=== PATIENT | male | born 2000 | race Caucasian/White ===

== ENCOUNTER 2019-07-18 21:01 | Emergency (ER) | payer MEDICAID ==
[~2019-07-18] VITALS: Ht 177.8 cm; Wt 94.8 kg
--- NOTE | 2019-07-18 22:29 | NUR ---
PT TO ROOM FROM LOBBY
[2019-07-18] MEDS ORDERED: CLINDAMYCIN PMX 600MG/50ML 50 ML ONE (22:58)
[2019-07-18] MEDS ORDERED: CLINDAMYCIN PMX 600MG/50ML 50 ML IV ONE (23:00)
[2019-07-18] MEDS ORDERED: SODIUM CHLORIDE FLUSH 10ML SYR IVF ONE (23:00)
[2019-07-19] MEDS ORDERED: LIDOCAINE-MPF 1%, 5ML ONE (00:07)
--- NOTE | 2019-07-19 00:18 | NUR ---
KAELYN ZENG IN TO I&D AFFECTED AREA
[2019-07-19 00:20] VITALS: BP 117/75
[2019-07-19] MEDS ORDERED: LIDOCAINE-MPF 1%, 5ML INFIL ONE (00:30)
== END 2019-07-19 00:52 | disposition home or self-care (01) ==
LOC: ED 23:59
DX: L03.011 Cellulitis of right finger (principal); L02.511 Cutaneous abscess of right hand
CPT/HCPCS: 10060; 64450; 96365; 99284

== ENCOUNTER 2021-04-11 23:42 | Emergency (ER) | payer SELFPAY ==
[~2021-04-11] VITALS: Ht 175.3 cm; Wt 91.1 kg
[2021-04-11 23:44] VITALS: BP 131/81
--- NOTE | 2021-04-12 01:14 | NUR ---
PT TO CT AND THEN ROOM 18
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
--- NOTE | 2021-04-12 01:22 | NUR ---
PT BACK IN ROOM
--- NOTE | 2021-04-12 01:52 | NUR ---
PT REFUSED TO PUT ON A GOWN
[2021-04-12] MEDS ORDERED: HYDROcodone/APAP 5/325 TABLET ONE (02:21)
[2021-04-12] MEDS ORDERED: HYDROcodone/APAP 5/325 TABLET PO ONE (02:30)
== END 2021-04-12 02:40 | disposition home or self-care (01) ==
LOC: ED 04-12 02:00
DX: S02.601A Fracture of unspecified part of body of right mandible, initial encounter for closed fracture (principal); S02.652A Fracture of angle of left mandible, initial encounter for closed fracture; W18.30XA Fall on same level, unspecified, initial encounter; Y93.89 Activity, other specified; Y92.828 Other wilderness area as the place of occurrence of the external cause; Y99.8 Other external cause status
CPT/HCPCS: 70486; 99284